=== PATIENT | male | born 1945 ===

== ENCOUNTER 2017-09-06 05:50 | Day surgery (SDC) | payer OTHER ==
[~2017-09-06 05:50] MED LIST: NEURONTIN800 MG PO; SINGULAIR10 MG PO
[2017-09-06] MEDS ORDERED: ULTRACET PO (08:13)
== END 2017-09-06 10:30 | disposition home or self-care (01) ==
LOC: CIR.AMB 05:50
DX: C20 Malignant neoplasm of rectum (principal)
CPT/HCPCS: 36561; C1751

== ENCOUNTER 2018-01-18 05:58 | Day surgery (SDC) | payer OTHER | END 2018-01-18 09:00 | disposition home or self-care (01) | LOC: CIR.AMB 05:58 | DX: C20 Malignant neoplasm of rectum (principal); K62.6 Ulcer of anus and rectum ==